=== PATIENT | male | born 1940 | race Caucasian/White ===

== ENCOUNTER → 2017-02-11 | Outpatient (CLI) | payer OTHER ==
[~2017-02-11] MED LIST: ALLO300T2 PO; AMLO10CA2 PO; ASPI81TA28 PO; BIOT1CAP3 PO; CHOL1000 PO; COLE625T PO; ESOM20CA PO; LEVO-366 PO; RANI150T3 PO; SERT25TA PO
[2017-02-11 12:38] LABS: HEMATOCRIT 45.3 % (42-52); MEAN CORPUSCULAR HEMOGLOBIN 30.9 pg (25-34); MEAN CORPUSCULAR HGB CONC 32.9 g/dl (32-36); MEAN PLATELET VOLUME 11.1 fL (7.4-10.4); PLATELET COUNT 236 K/uL (130-400); RED BLOOD COUNT 4.82 M/uL (4.7-6.1); WHITE BLOOD COUNT 6.79 K/uL (4.8-10.8)
[2017-02-11 12:43] LABS: URINE APPEARANCE TURBID (CLEAR); URINE COLOR DK YELLOW; URINE NITRITE NEG (NEG); URINE SPECIFIC GRAVITY 1.031 (1.000-1.030); UROBILINOGEN NEG (NEG)
[2017-02-11 12:44] LABS: MANUAL MICROSCOPIC REQUIRED? NO; REVIEW REQ? NO; URINE BILIRUBIN NEG (NEG)
[2017-02-11 13:36] LABS: BLOOD UREA NITROGEN 22 mg/dl (7-18); BUN/CREATININE RATIO 22.6 (10-20); CALCIUM 8.7 mg/dl (8.5-10.1); CARBON DIOXIDE 29 mmol/L (21-32); CHLORIDE 112 mmol/L (98-107); CREATININE 0.96 mg/dl (0.60-1.40); GLUCOSE 91 mg/dl (70-99); POTASSIUM 3.9 mmol/L (3.5-5.1); SODIUM 146 mmol/L (136-145); URIC ACID 5.3 mg/dl (2.6-7.2)
== END | disposition home or self-care (01) ==
LOC: C.LABPBG 08:44
PROVIDERS: ATTEND Internal Medicine
DX: I10 Essential (primary) hypertension (principal); R31.29 Other microscopic hematuria; M10.9 Gout, unspecified

== ENCOUNTER 2017-06-29 17:46 | Emergency (ER) | payer OTHER ==
[~2017-06-29] VITALS: Ht 172.7 cm; Wt 81.3 kg
[2017-06-29 17:51] VITALS: TEMP 37.7
[2017-06-29] MEDS ORDERED: ACETAMINOPHEN 500 MG TAB PO STA (18:21)
--- NOTE | 2017-06-29 18:21 | EMERGENCY ROOM VISIT NOTE ---
History First contact with patient: 18:14 Chief Complaint: OTHER COMPLAINT Stated Complaint: UPPER GI PAIN, PAIN L SHOULDER, ELEVATED TEMP History of Present Illness The patient is a 76 year old male who presents to the Emergency Room with complaints of fever, upper abdominal pain and myalgias. The patient also notes the following associated symptoms, headache, heartburn, weakness and cough. This started 24 hrs ago and is worsening. The patient has tried tums and nexium for relieving factors. No sick contacts. Pt denies LOC, chills, diaphoresis, visual changes, neck pain, breathing difficulties, nausea, vomiting , abdominal pain, back pain, melena, hematochezia, urinary symptoms, numbness, lymphadenopathy, rash, or other complaints. Source of History: patient Onset: yesterday Position: abdomen, other (global) Quality: other (fever) Timing: worsening Associated Symptoms: + headache, + cough, + weakness Review of Systems See HPI for pertinent positives and negatives. A total of ten systems were reviewed and were otherwise negative. Past Medical/Surgical History Medical Problems: (1) Diabetes Social History Smoking Status: Never Smoker Marital Status: Housing Status: lives with family Occupation Status: retired Current/Historical Medications Scheduled Allopurinol (Zyloprim), 1 TAB PO DAILY Amlodipine Besylate-Benazepril (Lotrel), 1 CAP PO DAILY Aspirin (Aspirin Ec), 81 MG PO DAILY Biotin (Biotin), 5,000 MCG PO HS Cholecalciferol (Vitamin D3), 1 TAB PO DAILY Colesevelam (Welchol), 1,250 MG PO BID Esomeprazole Magnesium (Nexium), 20 MG PO QAM Levofloxacin (Levaquin), 500 MG PO DAILY Sertraline (Zoloft), 1 TAB PO DAILY Scheduled PRN Ranitidine Hcl (Zantac), 1 TAB PO HS PRN for Heartburn Physical Exam Vital Signs Date Time Temp Pulse Resp B/P (MAP) Pulse Ox O2 Delivery O2 Flow Rate FiO2 06/29/17 21:05 72 18 130/67 97 06/29/17 19:35 67 18 108/66 96 Room Air 06/29/17 19:09 61 06/29/17 18:38 94 Room Air 06/29/17 17:51 37.7 79 18 131/78 94 Room Air Physical Exam GENERAL: Awake, alert, tired appearing, in no distress HENT: Normocephalic, atraumatic. Oropharynx unremarkable. EYES: Normal conjunctiva. Sclera non-icteric. NECK: Supple. No nuchal rigidity. FROM. No JVD. RESPIRATORY: Rhonchi on the right side anteriorly otherwise, Clear to auscultation. CARDIAC: Regular rate, normal rhythm. Extremities warm and well perfused. Pulses equal. ABDOMEN: Soft, non-distended. No tenderness to palpation. No rebound or guarding. No masses. RECTAL: Deferred. MUSCULOSKELETAL: Chest examination reveals no tenderness. The back is symmetrical on inspection without obvious abnormality. There is no CVA tenderness to palpation. No joint edema. LOWER EXTREMITIES: Calves are equal size bilaterally and non-tender. No edema. No discoloration. NEURO: Normal sensorium. No sensory or motor deficits noted. SKIN: No rash or jaundice noted. Medical Decision & Procedures ER Provider Diagnostic Interpretation: Radiology results as stated below per my review and radiologist interpretation: CHEST ONE VIEW PORTABLE CLINICAL HISTORY: 76 years-old Male presenting with EVALUATE WEAKNESS. TECHNIQUE: Portable upright AP view of the chest was obtained. COMPARISON: None. FINDINGS: Cardiac silhouette normal in size. Double density posterior to the right heart border may represent left atrial enlargement. Minimal linear opacities in the right mid and left lung base. No pleural effusion or pneumothorax. Osseous structures normal. Upper abdomen normal. IMPRESSION: 1. Minimal atelectasis or scarring in the right mid and left lung base. 2. Suggestion of left atrial enlargement. Electronically signed by: Kevyn Leal M.D. 06/29/2017 7:19 PM Dictated Date/Time: 06/29/2017 7:17 PM Laboratory Results 06/29/17 18:30 Red Blood Count 4.56, Mean Corpuscular Volume 91.4, Mean Corpuscular Hemoglobin 30.5, Mean Corpuscular Hemoglobin Concent 33.3, Mean Platelet Volume 10.0, Neutrophils (%) (Auto) 69.7, Lymphocytes (%) (Auto) 20.2, Monocytes (%) (Auto) 7.2, Eosinophils (%) (Auto) 2.5, Basophils (%) (Auto) 0.2, Neutrophils # (Auto) 9.13, Lymphocytes # (Auto) 2.65, Monocytes # (Auto) 0.94, Eosinophils # (Auto) 0.33, Basophils # (Auto) 0.03 06/29/17 18:30 Test 06/29/17 18:30 06/29/17 18:38 06/29/17 18:48 White Blood Count 13.11 K/uL (4.8-10.8) Red Blood Count 4.56 M/uL (4.7-6.1) Hemoglobin 13.9 g/dL (14.0-18.0) Hematocrit 41.7 % (42-52) Mean Corpuscular Volume 91.4 fL (80-100) Mean Corpuscular Hemoglobin 30.5 pg (25-34) Mean Corpuscular Hemoglobin Concent 33.3 g/dl (32-36) Platelet Count 193 K/uL (130-400) Mean Platelet Volume 10.0 fL (7.4-10.4) Neutrophils (%) (Auto) 69.7 % Lymphocytes (%) (Auto) 20.2 % Monocytes (%) (Auto) 7.2 % Eosinophils (%) (Auto) 2.5 % Basophils (%) (Auto) 0.2 % Neutrophils # (Auto) 9.13 K/uL (1.4-6.5) Lymphocytes # (Auto) 2.65 K/uL (1.2-3.4) Monocytes # (Auto) 0.94 K/uL (0.11-0.59) Eosinophils # (Auto) 0.33 K/uL (0-0.5) Basophils # (Auto) 0.03 K/uL (0-0.2) RDW Standard Deviation 51.0 fL (36.4-46.3) RDW Coefficient of Variation 15.3 % (11.5-14.5) Immature Granulocyte % (Auto) 0.2 % Immature Granulocyte # (Auto) 0.03 K/uL (0.00-0.02) Prothrombin Time 10.2 SECONDS (9.0-12.0) Prothromb Time International Ratio 1.0 (0.9-1.1) Activated Partial Thromboplast Time 25.9 SECONDS (21.0-31.0) Partial Thromboplastin Ratio 1.0 Anion Gap 8.0 mmol/L (3-11) Est Creatinine Clear Calc Drug Dose 61.3 ml/min Estimated GFR () 87.4 Estimated GFR (Non- 75.4 BUN/Creatinine Ratio 16.1 (10-20) Calcium Level 8.8 mg/dl (8.5-10.1) Magnesium Level 1.9 mg/dl (1.8-2.4) Total Bilirubin 0.9 mg/dl (0.2-1) Direct Bilirubin 0.2 mg/dl (0-0.2) Aspartate Amino Transf (AST/SGOT) 8 U/L (15-37) Alanine Aminotransferase (ALT/SGPT) 29 U/L (12-78) Alkaline Phosphatase 104 U/L (45-117) Total Creatine Kinase 81 U/L (39-308) Creatine Kinase MB 0.6 ng/ml (0.5-3.6) Creatine Kinase MB Ratio 0.7 (0-3.0) Troponin I < 0.015 ng/ml (0-0.045) Total Protein 7.0 gm/dl (6.4-8.2) Albumin 3.5 gm/dl (3.4-5.0) Lipase 100 U/L (73-393) Thyroid Stimulating Hormone (TSH) 0.883 uIu/ml (0.300-4.500) Lyme Disease IgG Antibody NEG (NEG) Lyme Disease IgM Antibody NEG (NEG) Bedside Lactic Acid Venous 0.76 mmol/L (0.90-1.70) Urine Color YELLOW Urine Appearance CLEAR (CLEAR) Urine pH 5.5 (4.5-7.5) Urine Specific [place] 1.020 (1.000-1.030) Urine Protein NEG (NEG) Urine Glucose (UA) NEG (NEG) Urine Ketones NEG (NEG) Urine Occult Blood NEG (NEG) Urine Nitrite NEG (NEG) Urine Bilirubin NEG (NEG) Urine Urobilinogen NEG (NEG) Urine Leukocyte Esterase NEG (NEG) Laboratory results reviewed by me Medications Administered Medications (Trade) Dose Ordered Sig/[place] Route Start Time Stop Time Status Last Admin Dose Admin Acetaminophen (Tylenol Tab) 1,000 mg NOW STAT PO 06/29/17 18:21 06/29/17 18:22 DC 06/29/17 18:38 1,000 MG Levofloxacin (Levaquin Tab) 500 mg NOW STAT PO 06/29/17 20:36 06/29/17 20:37 DC 06/29/17 20:55 500 MG Albuterol (Ventolin Hfa Inhaler) 2 puffs NOW ONCE INH 06/29/17 20:45 06/29/17 20:46 DC 06/29/17 20:56 2 PUFFS ECG Indication: chest pain Rate (beats per minute): 70 Rhythm: normal sinus Findings: no acute ischemic change, no ectopy ED Course 1813: The patient was evaluated in room C12. A complete history and physical exam was performed. 1820: Tylenol Tab 1000mg PO 2035: Levaquin Tab 500mg PO 2037: I reevaluated the patient. Discussed results and discharge instructions: He verbalized understanding and agreement. The patient is ready for discharge. 2044: Albuterol 2 puffs INH Medical Decision Triage Nursing notes reviewed. The patient's presentation and history were concerning for fever and flu like symptoms with chest pain. Etiologies such as metabolic, infection, hypo/hyperglycemia, electrolyte abnormalities, cardiac sources, intracerebral event, toxicologic, neurologic, as well as others were entertained. The patient was evaluated. He was given Tylenol. He had a chest x-ray performed and blood work was obtained. His CBC, chemistry panel, cardiac markers and LFTs were unremarkable. The patient does have a leukocytosis. Chest x-ray shows some increased markings in the right midlung and he does have some rhonchi in this area. His is a nurse and states that she heard congestion on the right side when she listened to him at home. The constellation of symptoms and physical findings are concerning for early pneumonia. Lyme testing was negative. The patient was given oral Levaquin. He did receive Tylenol). He was feeling well. I discussed conservative management at home with very close outpatient follow-up and the patient is very comfortable with this. His is comfortable as well. If he worsens in any way he will be back to emergency department for reevaluation.I gave my usual and customary discussion regarding this issue. By the evaluation outlined above other emergent etiologies such as those listed in the differential, as well as others, were deemed relatively unlikely. The patient was educated about the findings as listed above. All questions were answered and the patient was pleased with the treatment. Return instructions were outlined and the patient was discharged in stable condition. The patient was referred to his PCP for follow-up for a recheck of the current condition. Medication Reconcilliation Current Medication List: was personally reviewed by me Blood Pressure Screening Patient's blood pressure: Elevated blood pressure Blood pressure disposition: Referred to PCP Impression Primary Impression: Pneumonia Additional Impression: Weakness Departure Information Dispostion Home / Self-Care Prescriptions Levofloxacin (Levaquin) 500 Mg Tab 500 MG PO DAILY for 9 Days, #9 TAB Prov: Adonay Davis MD 06/29/17 Referrals No Doctor, Assigned (PCP) Forms HOME CARE DOCUMENTATION FORM, IMPORTANT VISIT INFORMATION, WORK / SCHOOL INSTRUCTIONS Patient Instructions My [facility] Additional Instructions PNEUMONIA INSTRUCTIONS: Levafloxacin(Levaquin) 500mg: Take one pill daily for 9 days for your infection. All antibiotics can cause diarrhea. If this occurs and you feel worse or it does not resolve in 1-2 days follow up with your doctor or return to the Emergency Department as this could be signs of serious underlying problems. Any medication can cause an allergic reaction, stop the pills immediately and return to the ER for rash, hives, breathing difficulties, or swelling. Albuterol Inhaler: Take 2 puffs four times daily for seven days, then as needed. Acetaminophen(Tylenol) may be used for fever or pain. Use 1000mg every six hours as needed. Avoid using more than 4000mg in a 24 hour period. AND/OR Ibuprofen(Motrin, Advil) may be used for fever or pain. Use 600mg every six hours as needed. Take with food. Avoid using more than 2400mg in a 24 hour period. Do not use 2400mg per day for more than three consecutive days without physician direction. Prolonged inappropriate use can lead to stomach upset or ulcers. Controlling your fever with Tylenol and Ibuprofen as above will make you feel better. Rest and drink plenty of fluids. Avoid strenuous activity until your symptoms resolve and your breathing returns to normal. Return to the ER for chest pain, difficulty breathing, persistent fevers, vomiting, worsening of your condition, or as needed. Follow up with your primary physician in 2-3 days for a recheck of the current condition. Problem Qualifiers
[2017-06-29 18:22] VITALS: Ht 172.7 cm; Wt 81.3 kg
[2017-06-29 18:38] VITALS: O2SAT 94
[2017-06-29] MEDS ORDERED: COLE625T PO (18:51)
[2017-06-29] MEDS ORDERED: ALLO300T2 PO (18:51)
[2017-06-29 18:52] LABS: BASO % 0.2 %; BASO ABS # 0.03 K/uL (0-0.2); COMPLETE YES; EOS % 2.5 %; HEMATOCRIT 41.7 % (42-52); IG% 0.2 %; LYMPH % 20.2 %; LYMPH ABS # 2.65 K/uL (1.2-3.4); MEAN CELL VOLUME 91.4 fL (80-100); MEAN CORPUSCULAR HEMOGLOBIN 30.5 pg (25-34); MEAN CORPUSCULAR HGB CONC 33.3 g/dl (32-36); MONO % 7.2 %; NEUT % 69.7 %; PLATELET COUNT 193 K/uL (130-400); RED BLOOD COUNT 4.56 M/uL (4.7-6.1); WHITE BLOOD COUNT 13.11 K/uL (4.8-10.8)
[2017-06-29] MEDS ORDERED: RANI150T3 PO (18:57)
[2017-06-29] MEDS ORDERED: ESOM20CA PO (18:57)
[2017-06-29] MEDS ORDERED: BIOT1CAP3 PO (18:57)
[2017-06-29] MEDS ORDERED: SERT25TA PO (18:57)
[2017-06-29] MEDS ORDERED: CHOL1000 PO (18:57)
[2017-06-29] MEDS ORDERED: AMLO10CA2 PO (18:57)
[2017-06-29] MEDS ORDERED: ASPI81TA28 PO (18:57)
[2017-06-29 19:00] LABS: URINE APPEARANCE CLEAR (CLEAR); URINE BILIRUBIN NEG (NEG); URINE COLOR YELLOW; URINE NITRITE NEG (NEG); URINE PH 5.5 (4.5-7.5); UROBILINOGEN NEG (NEG)
[2017-06-29 19:02] LABS: PROTHROMBIN TIME (PATIENT) 10.2 SECONDS (9.0-12.0)
[2017-06-29 19:03] LABS: ALT/SGPT 29 U/L (12-78); BLOOD UREA NITROGEN 16 mg/dl (7-18); BUN/CREATININE RATIO 16.1 (10-20); CALCIUM 8.8 mg/dl (8.5-10.1); CARBON DIOXIDE 26 mmol/L (21-32); CHLORIDE 107 mmol/L (98-107); CREATININE 0.96 mg/dl (0.60-1.40); GLUCOSE 106 mg/dl (70-99); MAGNESIUM 1.9 mg/dl (1.8-2.4); POTASSIUM 3.6 mmol/L (3.5-5.1); SODIUM 141 mmol/L (136-145)
[2017-06-29 19:12] LABS: ALKALINE PHOSPHATASE 104 U/L (45-117); AST/SGOT 8 U/L (15-37); CKMB/CK RATIO 0.7 (0-3.0); THYROID STIMULATING HORMONE 0.883 uIu/ml (0.300-4.500)
[2017-06-29 19:17] LABS: MANUAL MICROSCOPIC REQUIRED? NO; REVIEW REQ? NO
--- NOTE | 2017-06-29 19:20 | DIAGNOSTIC IMAGING REPORT ---
CHEST ONE VIEW PORTABLE CLINICAL HISTORY: 76 years-old Male presenting with EVALUATE WEAKNESS. TECHNIQUE: Portable upright AP view of the chest was obtained. COMPARISON: None. FINDINGS: Cardiac silhouette normal in size. Double density posterior to the right heart border may represent left atrial enlargement. Minimal linear opacities in the right mid and left lung base. No pleural effusion or pneumothorax. Osseous structures normal. Upper abdomen normal. IMPRESSION: 1. Minimal atelectasis or scarring in the right mid and left lung base. 2. Suggestion of left atrial enlargement. Electronically signed by: Kevyn Leal M.D. 06/29/2017 7:19 PM Dictated Date/Time: 06/29/2017 7:17 PM
[2017-06-29 19:56] LABS: LYME DISEASE AB IGG NEG (NEG); LYME DISEASE AB IGM NEG (NEG)
[2017-06-29] MEDS ORDERED: LEVOFLOXACIN 250 MG TAB PO STA (20:36)
[2017-06-29] MEDS ORDERED: ALBUTEROL HFA 8 GM INHALER INH ONE (20:45)
[2017-06-29] MEDS ORDERED: LEVO-366 PO (21:01)
[2017-06-29 21:05] VITALS: BP 130/67; PULSE 72; O2SAT 97
== END 2017-06-29 21:06 | disposition home or self-care (01) ==
LOC: MERGE 17:50 → C.EDB 17:50 → C.EDC 21:06
DX: J18.9 Pneumonia, unspecified organism (principal); R53.1 Weakness; E11.9 Type 2 diabetes mellitus without complications; Z79.82 Long term (current) use of aspirin; Z79.899 Other long term (current) drug therapy

== ENCOUNTER → 2017-07-21 | Outpatient (CLI) | payer OTHER ==
[~2017-07-21] MED LIST changes: -LEVO-366 PO
--- NOTE | 2017-07-21 13:15 | DIAGNOSTIC IMAGING REPORT ---
VIDEO SWALLOW STUDY CLINICAL HISTORY: Dysphagia. COMPARISON STUDY: No priors. Fluoroscopy time: 2.0 minutes. FINDINGS: Fluoroscopic guidance is provided to the department of speech pathology in performing a video swallow study. The patient consumed barium-impregnated pudding, nectar thick liquid, cracker with paste, and thin barium while the swallowing mechanism was observed in real-time. There was pharyngeal penetration without aspiration seen on both the thin barium and nectar thick liquid textures. No penetration or aspiration was seen with the cracker with paste and pudding textures. Follicular retention was noted with the solid textures. IMPRESSION: 1. There was pharyngeal penetration seen with the nectar thick liquid and thin barium textures. 2. No aspiration was seen. 3. See dedicated speech pathology report for detailed findings and recommendations. Dictated: 07/21/2017 12:23 PM Transcribed: 07/21/2017 1:15 PM Jayme Electronically signed by: Lucio Raymundo M.D. 07/21/2017 1:21 PM Dictated Date/Time: 07/21/2017 12:23 PM
--- NOTE | 2017-07-21 14:39 | SWALLOWING EVALUATION ---
HISTORY: This 76 year old man was referred for a video swallow study at [facility] in order to rule out aspiration and identify the safest consistencies for optimal oral intake. The patient reports a history of reflux and will cough at times when he eats. He also has difficulty swallowing foods such as moshed potatoes and bread. PMH is significant for DM, weakness, and pneumonia. Current diet is regular. PROCEDURE: The patient was seen in the Radiology Department of [facility] for the [facility]. Cursory examination of the oral cavity revealed natural dentition in good condition. Oral motor function was wnl. The patient was seated on a stool and was viewed in both the Anterior-Posterior (A-P) and Lateral planes. Volitional phonation exercises completed in the A-P plane revealed bilateral vocal fold movement and vocal intensity within functional limits. In the lateral plane, the patient was given the following boluses: 1 tsp. thin liquid barium x 2, single swallow thin liquid barium self-presented from a cup, sequential swallows of thin liquid barium self-presented from a straw, 1 tsp. nectar-thick liquid barium, single swallow nectar-thick liquid barium self-presented from a cup, 1 tsp. barium pudding, and 1 club cracker coated in barium pudding. The patient was then repositioned into the A-P plane and given the following boluses: 1 tsp. nectar thick barium and 1 tsp. barium pudding. RESULTS: Oral Stage: Lip closure was adequate. The patient was able to maintain a cohesive liquid bolus in the oral cavity without any escape during the liquid bolus hold task. Mastication was timely and efficient. Lingual motion for bolus transport was brisk. There was retention lining the tongue and palate after the initial swallow. The initiation of the pharyngeal swallow occurred when the bolus head reached the valleculae. Pharyngeal Stage: Soft palate elevation was complete. Laryngeal elevation revealed partial superior movement of the thyroid cartilage and partial approximation of the arytenoids to the epiglottic base. Anterior hyoid excursion was partially reduced and epiglottic deflection were complete. Laryngeal vestibular closure was incomplete, with a narrow and at times wide column of contrast located in the vestibule at the height of the swallow. The pharyngeal stripping wave was present yet diminished. Pharyngeal contraction was incomplete. There was partial distention and duration of the opening to the pharyngoesophageal segment (PES). Tongue base retraction was reduced, with a narrow column of contrast located between the tongue base and pharyngeal wall during the swallow. There was retention located in the valleculae and pyriforms after the swallow. There was evidence of laryngeal penetration to the level of the vocal folds without evidence of aspiration, with both thin and nectar thick liquids. The amount of penetration was reduced when taken via cup vs straw. A liquid wash assisted to clear a majority of the vallecular and pyriform retention. Laryngeal penetration is attributed to the patient's delayed swallow and pharyngeal weakness. Esophageal stage: There was mild retention located in the mid esophagus. Slow transit was noted. SUMMARY/RECOMMENDATIONS: This patient presents with mild miles-pharyngeal swallowing mechanics. He presents with s/s of esophageal dysphagia. The following is recommended: 1. Regular diet, "slippery" and thin liquids. 2. Aspiration and GERD precautions. No Straws. Fully upright for meals and for 30 minutes after meals. Do not lay flat. 3. Safe swallow strategies: Avoid foods that are dry, thick, pasty, or doughy. Use of condiments such as gravy to assist with making foods moist. Rest breaks while eating. Alternate solids and liquids. Small frequent meals. A summary of the results and recommendations was discussed with the patient immediately following the study with verbal understanding. The patient was also provided with verbal and written education regarding a "slippery" diet for improved comfort while eating (avoiding foods that are dry, thick, pasty, or doughy) as needed. He verbalized understanding. Thank you for referral of this patient. Please contact me at if any additional information is needed.
== END | disposition home or self-care (01) ==
LOC: C.RAD 11:13
PROVIDERS: ATTEND Internal Medicine Gastroenterology
DX: R13.10 Dysphagia, unspecified (principal)

== ENCOUNTER → 2017-08-28 | Outpatient (CLI) | payer OTHER | END | disposition home or self-care (01) | LOC: C.PATHSPEC 11:13 | PROVIDERS: ATTEND Plastic Surgery | DX: C44.629 Squamous cell carcinoma of skin of left upper limb, including shoulder (principal) ==